=== PATIENT | female | born 1935 | race Caucasian/White ===

== ENCOUNTER 2016-08-05 12:29 | Emergency (ER) | payer OTHER ==
[~2016-08-05] VITALS: Ht 149.9 cm; Wt 80.7 kg
[~2016-08-05 12:29] MED LIST: ADVIL200 MG PO; Ascorbic Acid,Ester- PO; BENADRYL25 MG PO; CALTRATE 6001 TABLE1 PO; CELECOXIB200 MG PO; CIPRO500 MG PO; COUMADIN1 MG PO; CRESTOR10 MG PO; CRESTOR5 MG PO; Coumadin,Jantoven PO; Feosol PO; METFORMIN HCL500 MG PO; Magnesium PO; SENNA-TIME S T1 EACH PO; SENOKOT S,PE1 TABLET PO; TYLENOL REGULA325 MG PO; ULTRAM50 MG PO; VOLTAREN 1% GE100 GM TP
[2016-08-05 16:20] VITALS: BP 170/98
== END 2016-08-05 16:20 | disposition home or self-care (01) ==
LOC: EME → EDBD 12:29 → EME 16:20
DX: S91.012A Laceration without foreign body, left ankle, initial encounter (principal); S09.90XA Unspecified injury of head, initial encounter; S20.211A Contusion of right front wall of thorax, initial encounter; W18.09XA Striking against other object with subsequent fall, initial encounter; Y93.E9 Activity, other interior property and clothing maintenance
CPT/HCPCS: 70450; 71101; 73564; 73590; 73610; 99281; 99283

== ENCOUNTER 2016-08-17 09:51 | Emergency (ER) | payer OTHER ==
[~2016-08-17] VITALS: Ht 149.9 cm; Wt 81.2 kg
[2016-08-17] MEDS ORDERED: BACTRIM,SEPT1 TABLET PO (11:24)
[2016-08-17] MEDS ORDERED: KEFLEX500 MG PO (11:24)
[2016-08-17 12:10] VITALS: BP 165/75
== END 2016-08-17 12:21 | disposition home or self-care (01) ==
LOC: EME 09:51
DX: T81.4XXA Infection following a procedure, initial encounter (principal); S91.012D Laceration without foreign body, left ankle, subsequent encounter
CPT/HCPCS: 99281; 99283

== ENCOUNTER 2016-08-21 13:49 | Emergency (ER) | payer OTHER ==
[~2016-08-21] VITALS: Ht 149.9 cm; Wt 80.2 kg
[~2016-08-21 13:49] MED LIST changes: +BACTRIM,SEPT1 TABLET PO; +KEFLEX500 MG PO
[2016-08-21 15:22] VITALS: BP 148/74
== END 2016-08-21 15:23 | disposition home or self-care (01) ==
LOC: EME 13:49
DX: S91.012D Laceration without foreign body, left ankle, subsequent encounter (principal)
CPT/HCPCS: 99281; 99285

== ENCOUNTER 2016-11-04 12:55 | Emergency (ER) | payer OTHER ==
[~2016-11-04] VITALS: Ht 149.9 cm; Wt 77.2 kg
[2016-11-04 13:30] LABS: MCH 31.2 PG (29.0-34.0); MCHC 33.1 G/DL (30.0-36.0); MCV 94.4 FL (83-99); MEAN PLAT.VOLUME 11.7 uM^3 (9.5-12.4); PLATELET COUNT 199 K/uL (156-360); RBC DIS.WIDTH-CV 12.9 % (11.8-14.6); RBC DIS.WIDTH-SD 44.3 % (39-53); RED BLOOD COUNT 4.45 M/uL (3.80-5.20); WHITE BLOOD COUNT 7.2 K/uL (4.1-10.2)
[2016-11-04 13:47] LABS: CHLORIDE 107 mEq/L (99-109); SODIUM 140 mEq/L (136-147)
[2016-11-04 13:49] LABS: GLUCOSE 116 mg/dL (70-99)
[2016-11-04 13:50] LABS: ANION GAP 12 MEQ/L (2-14)
[2016-11-04 13:51] LABS: TOTAL BILIRUBIN 0.3 mg/dL (0.0-1.0)
[2016-11-04 13:53] LABS: ALKALINE PHOSPHATASE 49 IU/L (3-129); GFR ESTIMATE (CALCULATED) > 59 mL/min/
[2016-11-04 13:54] LABS: UREA NITROGEN (BUN) 19 mg/dL (9-23)
[2016-11-04 14:25] LABS: TROP-I INTERPRETATION NEGATIVE; TROPONIN-I < 0.01 ng/mL (0.0-0.30)
[2016-11-04 15:15] LABS: ADD MIUA? YES; BILIRUBIN NEGATIVE; BLOOD NEGATIVE; COLOR STRAW ((YELLOW)); GLUCOSE (STRIP) NEGATIVE; KETONES NEGATIVE; LEUKOCYTES SMALL; NITRITE NEGATIVE; PROTEIN (STRIP) NEGATIVE; UROBILINOGEN 0.2 MG/DL (0.2-1.0)
[2016-11-04 15:17] LABS: BACTERIA NONE SEEN /HPF; EPITHELIAL CELLS RARE /HPF; MUCUS NONE SEEN /LPF; RED BLOOD CELLS 0-5 /HPF (0-5); UCUL ADDED? NO; WHITE BLOOD CELLS 0-5 /HPF (0-5)
[2016-11-04] MEDS ORDERED: CLONIDINE HCL0.1 MG PO (16:37)
[2016-11-04 17:11] VITALS: BP 154/70
== END 2016-11-04 17:14 | disposition home or self-care (01) ==
LOC: EME 12:55
PROVIDERS: Emergency Medicine
DX: I10 Essential (primary) hypertension (principal); T46.5X6A Underdosing of other antihypertensive drugs, initial encounter; Z91.14 Patient's other noncompliance with medication regimen
CPT/HCPCS: 70450; 80053; 81003; 84484; 85027; 93005; 99281; 99284

== ENCOUNTER 2017-02-06 21:55 | Inpatient (IN) | payer OTHER ==
[~2017-02-06] VITALS: Ht 152.4 cm; Wt 79.0 kg
[~2017-02-06 21:55] MED LIST changes: +CLONIDINE HCL0.1 MG PO
[2017-02-06 23:03] LABS: HEMATOCRIT 39.3 % (36.0-46.0); MCH 31.8 PG (29.0-34.0); MCHC 33.8 G/DL (30.0-36.0); MEAN PLAT.VOLUME 11.4 uM^3 (9.5-12.4); PLATELET COUNT 188 K/uL (156-360); RBC DIS.WIDTH-CV 13.2 % (11.8-14.6); RBC DIS.WIDTH-SD 45.1 % (39-53); RED BLOOD COUNT 4.18 M/uL (3.80-5.20); WHITE BLOOD COUNT 10.6 K/uL (4.1-10.2)
[2017-02-06 23:13] LABS: PROTHROMBIN TIME 10.2 (9.2-11.2); PTT 23.8 (25-32)
[2017-02-06 23:15] LABS: CHLORIDE 109 mEq/L (99-109); POTASSIUM 4.2 mEq/L (3.7-5.4); SODIUM 141 mEq/L (136-147)
[2017-02-06 23:18] LABS: GLUCOSE 138 mg/dL (70-99)
[2017-02-06 23:19] LABS: ANION GAP 13 MEQ/L (2-14)
[2017-02-06 23:20] LABS: TOTAL BILIRUBIN 0.3 mg/dL (0.0-1.0)
[2017-02-06 23:21] LABS: ALKALINE PHOSPHATASE 52 IU/L (3-129); GFR ESTIMATE (CALCULATED) 46 mL/min/
[2017-02-06 23:22] LABS: UREA NITROGEN (BUN) 21 mg/dL (9-23)
[2017-02-06 23:24] LABS: TROP-I INTERPRETATION NEGATIVE; TROPONIN-I < 0.01 ng/mL (0.0-0.30)
[2017-02-06 23:25] LABS: LIPASE 15 U/L (1.0-51.0)
[2017-02-07 01:40] LABS: ADD MIUA? YES; BILIRUBIN NEGATIVE; BLOOD NEGATIVE; COLOR STRAW ((YELLOW)); GLUCOSE (STRIP) NEGATIVE; KETONES NEGATIVE; LEUKOCYTES TRACE; NITRITE NEGATIVE; PROTEIN (STRIP) NEGATIVE; SPECIFIC GRAVITY 1.009 (1.000-1.030); UROBILINOGEN 0.2 MG/DL (0.2-1.0)
[2017-02-07 01:42] LABS: BACTERIA NONE SEEN /HPF; EPITHELIAL CELLS RARE /HPF; MUCUS NONE SEEN /LPF; RED BLOOD CELLS 0-5 /HPF (0-5); UCUL ADDED? NO; WHITE BLOOD CELLS 0-5 /HPF (0-5)
[2017-02-07 03:33] VITALS: BP 152/66
[2017-02-07] MEDS ORDERED: LISINOPRIL20 MG PO (04:12)
[2017-02-07] MEDS ORDERED: PRINIVIL20 MG PO (04:12)
[2017-02-07 05:52] LABS: METH RESISTANT S AUREUS PCR NEGATIVE (NEGATIVE)
[2017-02-07 05:54] LABS: PROBE CHECK PASS; SPECIMEN PROCESSING CONTROL PASS
[2017-02-07 07:00] LABS: EOSINOPHIL (%) 1.1 % (0-5); EOSINOPHIL COUNT 0.1 K/uL (0-0.3); HEMATOCRIT 35.4 % (36.0-46.0); IMMATURE GRANULOCYTE (%) 0.4 % (0.0-0.7); INSTRUMENT ABS NEUTROPHIL CT 6.6 K/uL; MCH 32.4 PG (29.0-34.0); MCHC 33.9 G/DL (30.0-36.0); MCV 95.7 FL (83-99); MEAN PLAT.VOLUME 11.5 uM^3 (9.5-12.4); MONOCYTE (%) 7.8 % (3-12); MONOCYTE COUNT 0.7 K/uL (0-0.8); NEUTROPHIL (%) 69.5 % (45-76); NEUTROPHIL COUNT 6.6 K/uL (1.8-6.4); PLATELET COUNT 174 K/uL (156-360); RBC DIS.WIDTH-CV 13.2 % (11.8-14.6); RBC DIS.WIDTH-SD 47.1 % (39-53); WHITE BLOOD COUNT 9.5 K/uL (4.1-10.2)
[2017-02-07 07:25] LABS: ANION GAP 9 MEQ/L (2-14); CHLORIDE 108 MEQ/L (99-109); GFR ESTIMATE (CALCULATED) > 59 mL/min/; GLUCOSE 132 mg/dL (70-99); POTASSIUM 4.1 MEQ/L (3.7-5.4); SAMPLE HEMOLYSIS CHECK 0; SAMPLE ICTERIC CHECK 0; SAMPLE LIPEMIA CHECK 0; SODIUM 137 MEQ/L (136-147); UREA NITROGEN (BUN) 16 mg/dL (9-23)
[2017-02-07 08:00] VITALS: BP 129/60
[2017-02-07 11:57] VITALS: BP 142/63
[2017-02-07 13:53] LABS: POC NON-PRINT COM 1 ND
[2017-02-07 16:39] VITALS: BP 160/70
[2017-02-07 19:47] VITALS: BP 155/72
[2017-02-07 21:14] LABS: HEMATOCRIT 35.3 % (36.0-46.0); MCH 32.6 PG (29.0-34.0); MCHC 33.7 G/DL (30.0-36.0); MCV 96.7 FL (83-99); MEAN PLAT.VOLUME 11.7 uM^3 (9.5-12.4); PLATELET COUNT 171 K/uL (156-360); RBC DIS.WIDTH-CV 13.5 % (11.8-14.6); RBC DIS.WIDTH-SD 48.1 % (39-53); RED BLOOD COUNT 3.65 M/uL (3.80-5.20); WHITE BLOOD COUNT 6.1 K/uL (4.1-10.2)
[2017-02-07 23:28] VITALS: BP 159/71
[2017-02-08 03:44] VITALS: BP 131/62
[2017-02-08 07:17] LABS: EOSINOPHIL (%) 3.1 % (0-5); EOSINOPHIL COUNT 0.2 K/uL (0-0.3); HEMATOCRIT 33.9 % (36.0-46.0); IMMATURE GRANULOCYTE (%) 0.2 % (0.0-0.7); INSTRUMENT ABS NEUTROPHIL CT 3.7 K/uL; MCH 31.1 PG (29.0-34.0); MCHC 31.9 G/DL (30.0-36.0); MCV 97.7 FL (83-99); MEAN PLAT.VOLUME 11.6 uM^3 (9.5-12.4); MONOCYTE (%) 10.1 % (3-12); MONOCYTE COUNT 0.7 K/uL (0-0.8); NEUTROPHIL (%) 56.2 % (45-76); NEUTROPHIL COUNT 3.7 K/uL (1.8-6.4); PLATELET COUNT 163 K/uL (156-360); RBC DIS.WIDTH-CV 13.5 % (11.8-14.6); RBC DIS.WIDTH-SD 48.5 % (39-53); RED BLOOD COUNT 3.47 M/uL (3.80-5.20); WHITE BLOOD COUNT 6.5 K/uL (4.1-10.2)
[2017-02-08 07:20] LABS: HEMATOCRIT 33.9 % (36.0-46.0); MCH 32.7 PG (29.0-34.0); MCHC 33.3 G/DL (30.0-36.0); MEAN PLAT.VOLUME 11.7 uM^3 (9.5-12.4); PLATELET COUNT 161 K/uL (156-360); RBC DIS.WIDTH-CV 13.7 % (11.8-14.6); RBC DIS.WIDTH-SD 49.4 % (39-53); RED BLOOD COUNT 3.46 M/uL (3.80-5.20); WHITE BLOOD COUNT 6.5 K/uL (4.1-10.2)
[2017-02-08 08:05] LABS: ANION GAP 8 MEQ/L (2-14); CHLORIDE 114 MEQ/L (99-109); GFR ESTIMATE (CALCULATED) > 59 mL/min/; GLUCOSE 103 mg/dL (70-99); MAGNESIUM 1.8 mg/dl (1.3-2.7); POTASSIUM 4.2 MEQ/L (3.7-5.4); SAMPLE HEMOLYSIS CHECK 0; SAMPLE ICTERIC CHECK 0; SAMPLE LIPEMIA CHECK 0; UREA NITROGEN (BUN) 10 mg/dL (9-23)
[2017-02-08 08:07] LABS: SODIUM 145 MEQ/L (136-147)
[2017-02-08 09:45] VITALS: BP 142/67
[2017-02-08 11:40] VITALS: BP 141/65
[2017-02-08 14:32] LABS: C DIFF TOXIN NEGATIVE (NEGATIVE)
[2017-02-08 14:36] LABS: PROBE CHECK PASS; SPECIMEN PROCESSING CONTROL PASS
[2017-02-08 16:00] VITALS: BP 161/70
[2017-02-08 19:10] VITALS: BP 137/75
[2017-02-08 23:33] VITALS: BP 143/67
[2017-02-09 08:35] VITALS: BP 153/69
[2017-02-09 09:08] LABS: HEMATOCRIT 34.1 % (36.0-46.0); MCH 32.6 PG (29.0-34.0); MCHC 33.1 G/DL (30.0-36.0); MCV 98.3 FL (83-99); MEAN PLAT.VOLUME 11.6 uM^3 (9.5-12.4); PLATELET COUNT 155 K/uL (156-360); RBC DIS.WIDTH-CV 13.6 % (11.8-14.6); RBC DIS.WIDTH-SD 48.9 % (39-53); RED BLOOD COUNT 3.47 M/uL (3.80-5.20)
[2017-02-09 09:41] LABS: ANION GAP 9 MEQ/L (2-14); CHLORIDE 109 MEQ/L (99-109); GFR ESTIMATE (CALCULATED) > 59 mL/min/; GLUCOSE 147 mg/dL (70-99); MAGNESIUM 1.8 mg/dl (1.3-2.7); SAMPLE HEMOLYSIS CHECK 0; SAMPLE ICTERIC CHECK 0; SAMPLE LIPEMIA CHECK 0; SODIUM 141 MEQ/L (136-147); UREA NITROGEN (BUN) 8 mg/dL (9-23)
[2017-02-09] MEDS ORDERED: FLORASTOR250 MG PO (09:41)
[2017-02-09] MEDS ORDERED: DICYCLOMINE HCL10 MG PO (09:41)
[2017-02-09] MEDS ORDERED: METRONIDAZOLE500 MG PO (09:41)
== END 2017-02-09 10:53 | disposition home or self-care (01) | DRG 392 ==
LOC: EME 21:55 → 2EASTP 02-07 02:49 → EDOF 02-07 02:49 → 2EASTP 02-07 03:28
PROVIDERS: Emergency Medicine; Hospitalist; Internal Medicine; Specialist
DX: K52.9 Noninfective gastroenteritis and colitis, unspecified (principal); K57.30 Diverticulosis of large intestine without perforation or abscess without bleeding; K76.0 Fatty (change of) liver, not elsewhere classified; N39.0 Urinary tract infection, site not specified; E11.9 Type 2 diabetes mellitus without complications; E78.5 Hyperlipidemia, unspecified; I10 Essential (primary) hypertension; M19.90 Unspecified osteoarthritis, unspecified site; E66.9 Obesity, unspecified; Z68.34 Body mass index [BMI] 34.0-34.9, adult; Z83.3 Family history of diabetes mellitus; Z90.710 Acquired absence of both cervix and uterus; Z96.653 Presence of artificial knee joint, bilateral
CPT/HCPCS: 74177; 80048; 80053; 81003; 82272; 82948; 83605; 83690; 83735; 84484; 85025; 85027; 85610; 85730; 86140; 87040; 87493; 87506; 87641; 99202; 99281; 99285; J0744; J1815; J2270; J2405; J7030; S0028; S0030

== ENCOUNTER 2017-03-10 18:02 | Emergency (ER) | payer OTHER ==
[~2017-03-10] VITALS: Ht 152.4 cm; Wt 77.3 kg
[~2017-03-10 18:02] MED LIST changes: +DICYCLOMINE HCL10 MG PO; +FLORASTOR250 MG PO; +LISINOPRIL20 MG PO; +METRONIDAZOLE500 MG PO; +PRINIVIL20 MG PO
[2017-03-10] MEDS ORDERED: FLEXERIL5 MG PO (19:45)
[2017-03-10 20:16] VITALS: BP 172/79
== END 2017-03-10 20:16 | disposition home or self-care (01) ==
LOC: EME 18:02
DX: S16.1XXA Strain of muscle, fascia and tendon at neck level, initial encounter (principal); V49.40XA Driver injured in collision with unspecified motor vehicles in traffic accident, initial encounter; I10 Essential (primary) hypertension
CPT/HCPCS: 72125; 99281; 99284

== ENCOUNTER 2018-02-09 15:02 | Emergency (ER) | payer OTHER ==
[~2018-02-09] VITALS: Ht 147.3 cm; Wt 81.0 kg
[~2018-02-09 15:02] MED LIST changes: +FLEXERIL5 MG PO
[2018-02-09 18:17] LABS: BASOPHIL (%) 0.5 % (0-1); EOSINOPHIL (%) 2.4 % (0-5); EOSINOPHIL COUNT 0.2 K/uL (0-0.3); HEMATOCRIT 38.3 % (36.0-46.0); HEMOGLOBIN 12.9 G/DL (11.9-15.5); IMMATURE GRANULOCYTE (%) 0.4 % (0.0-0.7); LYMPHOCYTE (%) 28.5 % (15-42); LYMPHOCYTE COUNT 2.4 K/uL (1.0-2.8); MCHC 33.7 G/DL (30.0-36.0); MONOCYTE (%) 8.8 % (3-12); MONOCYTE COUNT 0.8 K/uL (0-0.8); NEUTROPHIL (%) 59.4 % (45-76); NEUTROPHIL COUNT 5.1 K/uL (1.8-6.4); PLATELET COUNT 193 K/uL (156-360); RBC DIS.WIDTH-CV 13.1 % (11.8-14.6); RBC DIS.WIDTH-SD 45.8 % (39-53); RED BLOOD COUNT 4.03 M/uL (3.80-5.20); WHITE BLOOD COUNT 8.5 K/uL (4.1-10.2)
[2018-02-09 18:24] LABS: ALBUMIN 4.2 g/dL (3.2-4.8); CHLORIDE 106 mEq/L (99-109); POTASSIUM 4.2 mEq/L (3.7-5.4); SODIUM 141 mEq/L (136-147)
[2018-02-09 18:25] LABS: PTT 24.8 SEC (25-37)
[2018-02-09 18:27] LABS: GLUCOSE 152 mg/dL (70-99); TOTAL PROTEIN 7.3 g/dL (6.4-8.3)
[2018-02-09 18:29] LABS: TOTAL BILIRUBIN 0.3 mg/dL (0.0-1.0)
[2018-02-09 18:30] LABS: ALKALINE PHOSPHATASE 53 IU/L (3-129)
[2018-02-09 18:31] LABS: CREATININE 0.9 mg/dL (0.6-1.3); GFR ESTIMATE (CALCULATED) > 59 mL/min/
[2018-02-09 18:32] LABS: AST (GOT) 24 IU/L (2-34); DIRECT BILIRUBIN 0.1 mg/dL (0.0-0.3); UREA NITROGEN (BUN) 24 mg/dL (9-23)
[2018-02-09 18:33] LABS: ALT (GPT) 20 IU/L (3-49)
[2018-02-09 18:40] LABS: TROP-I INTERPRETATION NEGATIVE; TROPONIN-I < 0.01 ng/mL (0.0-0.30)
[2018-02-09 20:03] LABS: APPEARANCE CLEAR ((CLEAR)); BILIRUBIN NEGATIVE; BLOOD NEGATIVE; COLOR YELLOW ((YELLOW)); GLUCOSE (STRIP) NEGATIVE; KETONES NEGATIVE; LEUKOCYTES SMALL; NITRITE NEGATIVE; PROTEIN (STRIP) NEGATIVE; SPECIFIC GRAVITY 1.019 (1.000-1.030); UROBILINOGEN 0.2 MG/DL (0.2-1.0)
[2018-02-09 20:25] LABS: BACTERIA RARE /HPF; EPITHELIAL CELLS RARE /HPF; MUCUS TRACE /LPF; RED BLOOD CELLS 0-5 /HPF (0-5); UCUL ADDED? NO; WHITE BLOOD CELLS 0-5 /HPF (0-5)
[2018-02-09 20:30] VITALS: BP 156/77
== END 2018-02-09 22:12 | disposition home or self-care (01) ==
LOC: EME 15:02
PROVIDERS: Emergency Medicine
DX: R42 Dizziness and giddiness (principal); R26.81 Unsteadiness on feet; I10 Essential (primary) hypertension; Z96.653 Presence of artificial knee joint, bilateral; Z88.5 Allergy status to narcotic agent
CPT/HCPCS: 70450; 80048; 80076; 81003; 84484; 85025; 85610; 85730; J1200; J2765; J7030